=== PATIENT | female | born 1945 | race African-American/Black ===

== ENCOUNTER 2017-12-04 14:58 | Emergency (ER) | payer OTHER ==
--- NOTE | 2017-12-04 15:09 | PDOC ---
Rapid Medical Evaluation Time Seen by Provider: 12/04/17 15:08 Medical Evaluation: 12/04/17 15:08 I have performed a brief in-person evaluation of this patient. The patient presents with a chief complaint of: right ankle pain s/p twisting while walking Pertinent physical exam findings: swelling to R lateral ft/ankle I have ordered the following: xray The patient will proceed to the ED for further evaluation. Discharge Disposition - Diagnosis Ankle pain, right - Referrals - Patient Instructions - Post Discharge Activity
[2017-12-04 15:28] VITALS: BP 134/78; PULSE 85; TEMP 97.7; BMI 29.7
[2017-12-04] MEDS ORDERED: ACETAMINOPHEN 500 MG TABLET (FP) PO ONE (15:42)
[2017-12-04] MEDS ORDERED: ACETAMINOPHEN 325 MG TABLET (FP) ONE (15:43)
--- NOTE | 2017-12-04 15:49 | PDOC ---
History of Present Illness - General Chief Complaint: Injury Stated Complaint: RIGHT ANKLE INJURY Time Seen by Provider: 12/04/17 15:08 History Source: Patient Exam Limitations: No Limitations - History of Present Illness Initial Comments: 12/04/17 15:43 This is a 72-year-old woman with past medical history of hypertension presents emergency Department with right foot pain status post inversion injury. Patient states she was stepping into her car when she twisted her ankle. Patient stated she experienced a "cracking sound" and noted that her foot began to swell. Patient was able to emulate on her foot but did cause pain. She denies numbness , tingling, discoloration Past History - Past Medical History Allergies/Adverse Reactions: Allergies Allergy/AdvReac Type Severity Reaction Status Date / Time No Known Allergies Allergy Verified 12/04/17 15:19 Home Medications: Ambulatory Orders Ibuprofen 600 mg PO Q6H PRN #60 tablet 12/04/17 Losartan Potassium 100 mg PO ASDIR 12/04/17 CVA: No COPD: No DVT: No Dementia: No - Immunization History Immunization Up to Date: Yes - Suicide/Smoking/Psychosocial Hx Smoking History: Never smoked Have you smoked in the past 12 months: No Information on smoking cessation initiated: No Hx Alcohol Use: No Drug/Substance Use Hx: No Substance Use Type: None Review of Systems - Review of Systems Able to Perform ROS?: Yes Is the patient limited Latvian proficient: No Constitutional: No: Symptoms Reported HEENTM: No: Symptoms Reported Respiratory: No: Symptoms reported Cardiac (ROS): No: Symptoms Reported ABD/GI: No: Symptoms Reported : No: Symptoms Reported Musculoskeletal: Yes: See HPI Integumentary: No: Symptoms Reported Neurological: No: Symptoms reported *Physical Exam - Vital Signs Last Vital Signs Temp Pulse Resp BP Pulse Ox 97.7 F 85 16 134/78 100 12/04/17 15:19 12/04/17 15:19 12/04/17 15:19 12/04/17 15:19 12/04/17 15:19 - Physical Exam General Appearance: Yes: Appropriately Dressed. No: Apparent Distress HEENT: positive: Normal ENT Inspection Neck: positive: Trachea midline, Supple Respiratory/Chest: positive: Lungs Clear, Normal Breath Sounds. negative: Respiratory Distress, Accessory Muscle Use Vascular Pulses: Dorsalis-Pedis (R): 2+, Doralis-Pedis (L): 2+ Musculoskeletal: positive: Normal Inspection. negative: CVA Tenderness Extremity: positive: Normal Inspection, Tender (Distal fifth metatarsal of the right foot) Integumentary: positive: Normal Color, Dry, Warm Neurologic: positive: Alert, Normal Response, Motor Strength 5/5 Medical Decision Making - Medical Decision Making 12/04/17 15:48 A/P: 72-year-old old history of hypertension presents today with right foot pain Tenderness to the distal aspect of the right fifth metatarsal No appreciable swelling noted Full sensation distal to the pain 2+ DP pulses bilaterally Tylenol 975 mg now X-ray Reassess 12/04/17 16:32 X-rays read by me: Fifth metatarsal fracture I will apply a nurse practitioner made posterior splint and referred to her orthopedist Dr. Altman. 12/04/17 17:25 crutches *DC/Admit/Observation/Transfer Diagnosis at time of Disposition: Metatarsal fracture Qualifiers: Encounter type: initial encounter Metatarsal bone: fifth Fracture type: closed Fracture alignment: nondisplaced Laterality: right Qualified Code(s): S92.354A - Nondisplaced fracture of fifth metatarsal bone, right foot, initial encounter for closed fracture - Discharge Dispostion Disposition: HOME Condition at time of disposition: Stable Admit: No - Prescriptions Prescriptions: Ibuprofen 600 mg PO Q6H PRN #60 tablet PRN Reason: Pain - Referrals Referrals: Keny Altman MD [Staff Physician] - - Patient Instructions Additional Instructions: Make an appointment with Dr. Altman for reevaluation within 1 week. Keep her leg elevated whenever you are sitting down. Apply ice to affected area to help control pain. Take Motrin 600 mg every 6 hours as needed for pain Return to emergency Department for increased pain, discoloration of your foot, numbness or tingling of your foot, and inability to move toes or any other concerns. - Post Discharge Activity
== END 2017-12-04 17:26 | disposition home or self-care (01) ==
LOC: JERFT 14:58 → JER 14:58 → JERFT 17:26
PROC: 2W3QX1Z Immobilization of Right Lower Leg using Splint (ICD-10-PCS; principal; 2017-12-04)
DX: S92.354A Nondisplaced fracture of fifth metatarsal bone, right foot, initial encounter for closed fracture (principal); X50.1XXA Overexertion from prolonged static or awkward postures, initial encounter; Y93.89 Activity, other specified; Y92.810 Car as the place of occurrence of the external cause; Y99.8 Other external cause status; I10 Essential (primary) hypertension
CPT/HCPCS: 73610-TC-RT-FY; 73630-TC-RT-FY; 99281-25

== ENCOUNTER 2018-12-30 13:42 | Emergency (ER) | payer OTHER ==
--- NOTE | 2018-12-30 13:47 | PDOC ---
Rapid Medical Evaluation Time Seen by Provider: 12/30/18 13:43 Medical Evaluation: Allergies Allergy/AdvReac Type Severity Reaction Status Date / Time No Known Allergies Allergy Verified 12/04/17 15:19 12/30/18 13:44 HPI:L ankle injury, described inversion type injury; did not hit head PE:No gross deficits tenderness L ateral malelolus; proximal fibula and foot non tender ORDERS: X- ray L ankle 12/30/18 13:46 Discharge Disposition - Diagnosis Left ankle injury - Referrals - Patient Instructions - Post Discharge Activity
[2018-12-30 13:48] VITALS: BP 129/68; PULSE 106; TEMP 98.2; BMI 34.4
--- NOTE | 2018-12-30 14:13 | PDOC ---
History of Present Illness - General Chief Complaint: Injury Stated Complaint: LF FOOT INJURY Time Seen by Provider: 12/30/18 13:43 History Source: Patient - History of Present Illness Occurred: reports: this afternoon Past History - Past Medical History Allergies/Adverse Reactions: Allergies Allergy/AdvReac Type Severity Reaction Status Date / Time No Known Allergies Allergy Verified 12/30/18 13:59 Home Medications: Ambulatory Orders Losartan Potassium 100 mg PO ASDIR 12/04/17 Tramadol HCl 50 mg PO Q6H #20 tablet MDD 200 mg 12/30/18 CVA: No COPD: No DVT: No Dementia: No - Immunization History Immunization Up to Date: Yes - Suicide/Smoking/Psychosocial Hx Smoking History: Never smoked Have you smoked in the past 12 months: No Hx Alcohol Use: No Drug/Substance Use Hx: No Substance Use Type: None Review of Systems - Review of Systems Musculoskeletal: Yes: Joint Pain, Joint Swelling Neurological: No: Headache, Dizziness *Physical Exam - Vital Signs Last Vital Signs Temp Pulse Resp BP Pulse Ox 98.2 F 106 H 16 129/68 99 12/30/18 13:46 12/30/18 13:46 12/30/18 13:46 12/30/18 13:46 12/30/18 13:46 - Physical Exam General Appearance: Yes: Appropriately Dressed. No: Apparent Distress HEENT: positive: Normal Voice Neck: positive: Supple Respiratory/Chest: negative: Respiratory Distress Extremity: positive: Tender, Swelling (mod swelling to lat malleolus of L ankle , NVI) Integumentary: positive: Dry, Warm Neurologic: positive: Fully Oriented, Alert, Normal Mood/Affect Procedures - Splinting Splint Location: Left: Ankle Hand-Made Type: orthoglass Splint Type: Yes: Long Leg (posterior splint) Post-Proc Neuro Vasc Exam: normal Vishla Bandage: 4" (3) Sling: No Complications: No Post splint xray: No Medical Decision Making - Medical Decision Making 12/30/18 14:12 73 yo F, h/o HTN, here w/ ankle injury s/p twisting injury while descending steps at home today. No fall. No head injury. Not on blood thinners See exam R/o ankle fx, m/l sprain -XR -pain control 12/30/18 15:13 Mostly non-displaced oblique distal fibular fx on XR. Will place posterior splint, crutches for NWB and pain control. Of note pt known to Dr Altman of ortho 2/2 prior fx and states while in ED, she was able to make an appt w/ MD for tomorrow *DC/Admit/Observation/Transfer Diagnosis at time of Disposition: Ankle fracture Qualifiers: Encounter type: initial encounter Fracture type: closed Laterality: left Qualified Code(s): S82.892A - Other fracture of left lower leg, initial encounter for closed fracture - Discharge Dispostion Disposition: HOME - Prescriptions Prescriptions: Tramadol HCl 50 mg PO Q6H #20 tablet MDD 200 mg - Referrals - Patient Instructions Printed Discharge Instructions: DI for Ankle Fracture Additional Instructions: You sustained a distal fibular fracture and had posterior splint placed. Use crutches for non-weight bearing and elevate the extremity at home to relieve swelling. Take tramadol as directed. Please follow-up with Dr. Altman for orthopedic as already scheduled - Post Discharge Activity
[2018-12-30] MEDS ORDERED: KETOROLAC TROMETHAMINE 30 MG/1 ML VIAL IM ONE (14:38)
[2018-12-30] MEDS ORDERED: KETOROLAC TROMETHAMINE 30 MG/1 ML VIAL ONE (14:44)
== END 2018-12-30 15:24 | disposition home or self-care (01) ==
LOC: JERFT 13:42
PROC: 2W3MX1Z Immobilization of Left Lower Extremity using Splint (ICD-10-PCS; principal; 2018-12-30)
DX: S82.832A Other fracture of upper and lower end of left fibula, initial encounter for closed fracture (principal); W10.8XXA Fall (on) (from) other stairs and steps, initial encounter; Y93.89 Activity, other specified; Y92.018 Other place in single-family (private) house as the place of occurrence of the external cause; Y99.8 Other external cause status
CPT/HCPCS: 29505; 73610-TC-LT-FY; 99281-25

== ENCOUNTER 2019-01-08 12:02 | Day surgery (SDC) | payer OTHER ==
[2019-01-07 12:10] VITALS: BMI 33.6
--- NOTE | 2019-01-08 11:09 | HP ---
Satellite H - Chief Complaint Chief Complaint: left ankle fx - Past Medical History Allergies/Adverse Reactions: Allergies Allergy/AdvReac Type Severity Reaction Status Date / Time No Known Allergies Allergy Verified 12/30/18 13:59 - Current Medications Current Medications: Home Medications Medication Instructions Recorded Amlodipine Besylate 5 mg PO DAILY 01/07/19 Lisinopril/Hydrochlorothiazide 1 each PO DAILY 01/07/19 [Lisinopril-Hctz 20-12.5 mg Tab] Rosuvastatin [Crestor -] 5 mg PO HS 01/07/19 Hydrocodone/Acetaminophen 1 each PO Q6H #30 tablet MDD 4 01/08/19 [Hydrocodone-Acetamin 5-325 mg] Satellite Physical Exam - Physical Examination General Appearance: Well Nourished, Well Developed, Alert & Oriented x3 ENT: Clear Lung: Normal air movement Heart: Regular rate & rhythm Extremities: Other (left ankle- + ttp, +swelling, splint inact, nvi, xrays show displaced distal fibula fx) Neurological: Intact, Alert, Oriented Satellite Impression/Plan - Impression/Plan Impression: left distal fibula fx Operative Procedure: left ankle orif Date to be Performed: 01/08/19
[2019-01-08] MEDS ORDERED: BUPIVACAINE HCL/PF 0.5% (5MG/ML) 10 ML VIAL ONE (12:36)
[2019-01-08] MEDS ORDERED: MIDAZOLAM HCL 2 MG/2 ML SINGLE DOSE VIAL ONE ×2 (12:37)
[2019-01-08] MEDS ORDERED: PROPOFOL 20 ML ONE ×2 (13:39)
[2019-01-08] MEDS ORDERED: fentaNYL CITRATE 250 MCG/5 ML VIAL ONE (14:04)
[2019-01-08] MEDS ORDERED: ceFAZolin SODIUM 1 GM VIAL IVPB ONE (14:16)
[2019-01-08] MEDS ORDERED: ceFAZolin SODIUM 1 GM VIAL ONE ×2 (14:20→14:21)
[2019-01-08] MEDS ORDERED: ePHEDrine SULFATE 50 MG/1 ML AMPULE ONE (14:49)
[2019-01-08] MEDS ORDERED: PHENYLEPHRINE HCL 10 MG/1 ML SINGLE DOSE VIAL ONE (14:50)
[2019-01-08] MEDS ORDERED: ONDANSETRON 4 MG/2 ML VIAL IVPUSH PRN (15:00)
[2019-01-08] MEDS ORDERED: oxyCODONE HCL 5 MG TABLET PO PRN (15:00)
[2019-01-08] MEDS ORDERED: LACTATED RINGERS SOLUTION 1,000 ML IV SCH (15:00)
--- NOTE | 2019-01-08 15:18 | OP ---
Operative Note - Note: Operative Date: 01/08/19 Pre-Operative Diagnosis: left ankle fibula fracture Operation: ORIF left ankle lateral malleolus Implants: Taylor Low Profile Titanium distal fibular plate and screws Surgeon: Keny Altman Typewriter Ribbon Winder: Clive Hummel Anesthesiologist/MOLD PULLER: Eleni Blackburn Anesthesia: General, Local Estimated Blood Loss (mls): 0 Drains, Volume Out (mls): 0 Blood Volume Replaced (mls): 0 Fluid Volume Replaced (mls): 700 Operative Report Dictated: Yes
--- NOTE | 2019-01-08 16:02 | OP ---
DATE OF OPERATION: DATE OF DICTATION: 01/08/2019 PREOPERATIVE DIAGNOSIS: Left ankle distal fibular fracture. POSTOPERATIVE DIAGNOSIS: Left ankle distal fibular fracture. PROCEDURE: Left ankle open reduction and internal fixation, lateral malleolus. SURGEON: Naman Jennings MD ASSISTANTS: CARLYLE Carlos, Alexey, and Mikhail. ANESTHESIA: LMA anesthesia; a popliteal block. DRAINS: None. COMPLICATIONS: None. SPECIMEN: None. BLOOD LOSS: None. BLOOD GIVEN: None. FLUID REPLACEMENT: Plasmalyte 700 mL. INDICATIONS FOR PROCEDURE: This patient is a 73-year-old female with a preoperative diagnosis of a displaced left ankle distal fibular fracture. After understanding the potential risks, complications, alternatives, and benefits of surgical versus non-surgical treatment, patient elected to undergo this procedure. PROCEDURE IN DETAIL: Patient was brought to the operating room. Peripheral IV placed. IV sedation given. Ancef 2 g was given. LMA anesthesia was induced. A tourniquet was applied to the left upper thigh. A bump was placed under the left hemipelvis. The left lower extremity was prepped and draped in sterile fashion, elevated, exsanguinated with an Esmarch bandage and the tourniquet inflated to 275 mmHg. A lateral incision was made with a number-15 scalpel blade over the distal fibula. Subcutaneous hemostasis was achieved with the Bovie cautery. Dissection done down to the lateral fibula. A subperiosteal dissection was made with a periosteal elevator exposing the fracture site. The area was copiously irrigated, washed out, and a small curette and pick-ups used to remove soft tissue and periosteal debris. After this was done, I was able to reduce the distal fibula with an alligator clamp. X-rays were taken in the AP, lateral, and multiple oblique planes, documenting excellent position of the fracture fragments, and the reduction was quite good. The medial joint line was not widened at all and the syndesmosis looked fine. Next, I put in two fully-threaded, non-locking lag screws in the standard fashion using a 2.6-mm drill and then over-drilling with a 3.5-mm drill the proximal cortex. These two lag screws held the fibular fracture together quite well. X-rays were taken in multiple planes and then seen to be in anatomic reduction. The medial ankle joint looked good, the mortise looked good, and the syndesmosis was not disrupted. Next, we put on a Burton low-profile titanium distal fibular plate. We held it in place with two K-wires. I put in one bicortical screw 14 mm in length, fully threaded, nonlocking proximal to the fracture site, then three distal unicortical locking screws distal to the fracture site. X-rays were taken. Overall, it came together quite well. The plate was in good position, holding down the lag screws and fracture. The pins were removed. Two additional bicortical screws were put in proximal to the fracture site. These were both 12 mm in length. Final x-rays were taken in AP, lateral, and multiple oblique planes. There was an anatomic reduction, came together quite well. The area was copiously irrigated and washed out. The periosteum was closed over the plate. The fascia was closed with 2-0 Vicryl sutures. Vicryl 2-0 was then used to close the deep dermal layer. Final skin reapproximation was done with a row of tasha. The area was then washed and dried, covered with Xeroform gauze, 4 x 4 gauze, Webril, and an Orthoglass AO splint was applied first a posterior slab and then a medial and lateral slab held in place with Vishal bandage. The tourniquet was taken down for a total tourniquet time of 36 minutes. There were no complications during the case. The patient tolerated the procedure quite well and brought to the ambulatory recovery room in stable condition. NAMAN JENNINGS M.D. [id number]
[2019-01-08 17:03] VITALS: TEMP 96.7
[2019-01-08 18:35] VITALS: BP 105/54; PULSE 100
== END 2019-01-08 19:45 | disposition home or self-care (01) ==
LOC: JASU-SURG 12:02
PROVIDERS: ATTEND Orthopaedic Surgery
PROC: 0QSK04Z Reposition Left Fibula with Internal Fixation Device, Open Approach (ICD-10-PCS; principal; 2019-01-08 13:30)
DX: S82.62XA Displaced fracture of lateral malleolus of left fibula, initial encounter for closed fracture (principal); X58.XXXA Exposure to other specified factors, initial encounter; Y93.9 Activity, unspecified; Y92.9 Unspecified place or not applicable; Y99.9 Unspecified external cause status
CPT/HCPCS: 27792; C1713; 76000-TC-FY; 94760